=== PATIENT | male | born 1990 | race Two or more races ===

== ENCOUNTER 2022-08-19 15:26 | Emergency (ER) | payer MEDICAID ==
[~2022-08-19] VITALS: Ht 182.9 cm; Wt 74.8 kg
[2022-08-19 15:43] VITALS: BP 123/84
--- NOTE | 2022-08-19 15:43 | NUR ---
Note michele in EDM - 08/19/22 at 1610 by MEKHI BIBS C/O RIGHT EAR DISCOMFORT X5DAYS, NO DISCHARGE. PT IS AFEBRILE UPON ARRIVAL. AWAITING MD ORDERS.
--- NOTE | 2022-08-19 15:45 | NUR ---
BIBS C/O RIGHT EAR DISCOMFORT X5DAYS, NO DISCHARGE
--- NOTE | 2022-08-19 15:50 | NUR ---
WAITING FOR MD LEW
[2022-08-19] MEDS ORDERED: CARBAMIDE PEROXIDE OTIC 15 ML BOTTLE OT ONE (16:00)
[2022-08-19] MEDS ORDERED: CARBAMIDE PEROXIDE OTIC 15 ML BOTTLE ONE (16:02)
--- NOTE | 2022-08-19 16:06 | NUR ---
DEBROX OTIC APPLIED TO AFFECTED EAR ORDERED , INSTRUCTED PT TO LET IT DWEL FOR 20 MIN.
--- NOTE | 2022-08-19 17:13 | NUR ---
Patient discharged to home in stable condition. Written and verbal after care instructions given. Patient verbalizes understanding of instruction.
== END 2022-08-19 17:13 | disposition home or self-care (01) ==
LOC: ER 15:31
DX: H61.21 Impacted cerumen, right ear (principal)